=== PATIENT | female | born 1955 | race Caucasian/White ===

== ENCOUNTER 2017-05-23 09:15 | Observation (INO) | payer BC, OTHER ==
[2017-05-23] VITALS (14 sets, daily range): BP systolic 90–173; BP diastolic 49–99
[~2017-05-23] VITALS: Ht 157.5 cm; Wt 93.9 kg
--- NOTE | ~2017-05-23 | D ---
[facility] [place] [address] DISCHARGE SUMMARY Name: TERE LANDIS Room #: 217-P [facility] Ayse Golden#: [id number] Admission: 05/23/17 Attend Phys: Joshua Pichardo Discharge: 05/24/17 Date of : 59 Report #: [id number] THIS REPORT FOR: //name// CC: Joshua Mays DATE OF SERVICE: 05/24/2017 FINAL DIAGNOSES: 1. Unstable angina, status post coronary intervention. 2. Hypertension. 3. Hypercholesterolemia. HOSPITAL COURSE: Please see the original H and P for full details. The patient presented with unstable angina, evaluated by Dr. Joshua Pichardo. She was found to have an abnormal nuclear stress test. Please see the cardiac catheterization report for full details. She was found to have a severe occlusion in the LAD, undergoing placement of a drug-eluting stent. The patient has remained hemodynamically stable overnight. She will be discharged home on aspirin once a day, prasugrel 10 mg daily and atorvastatin 40 mg daily. She will continue with Lotrel 5/10 mg daily. She is given instructions for followup with Dr. Pichardo in a few weeks' time. We had a long discussion regarding the importance of compliance with taking dual antiplatelet therapy. <ELECTRONICALLY SIGNED> By: Asad Peterson MD 05/25/17 0805 [id number] [id number] Asad Peterson MD /darren
--- NOTE | ~2017-05-23 | CATHLAB ---
[facility] [address] [place] [address] INVASIVE PROCEDURE REPORT Name: TERE LANDIS Room #: 217-P [facility]#: [id number] Admission: 05/23/17 Attend Phys: Joshua Mayer Discharge: 05/24/17 Date of : 59 Date of Service: 05/26/17 1215 Report #: [id number] THIS REPORT FOR: //name// APPROVED REPORT Patient Details Patient Status: Out-Patient Room #: The patient is a 61 year-old female Event Personnel Joshua Pichardo Boat Outfitting Supervisor, Amara Palumbo Monitor, Kamran Arreaga RN, Henrry Garcia Scrub Procedures Performed Art Access - R femoral artery* 80430 Initial Mod Sed Same Phys/QHP Gr5y [id number] 30734 Mod Sed Same Phys/QHP Ea [id number] Left Heart Cath w/or w/o Coronaries [id number] [facility] Place w/wo Plasty Single LAD 501938 Hemostasis with Manual pressure Indication Dyspnea, Positive stress test, Chest pain Procedure Narrative The patient was brought electively to the Cardiac Catheterization Laboratory and was prepped and draped in a sterile manner. The Right Groin^ was infiltrated with 1% Lidocaine subcutaneous anesthesia. A PINNACLE 4FR Sheath #[id number] sheath was inserted into the RFA^. Coronary angiography was performed using coronary diagnostic catheters. The right coronary system was accessed and visualized with a JR 4 catheter. The left coronary system was accessed and visualized with a JL 4 catheter. The left ventricle was accessed and visualized with a JR 4 catheter. Left ventricular/Aortic Valve gradient assessed via catheter pullback. The patient tolerated the procedure well and there were no complications associated with the procedure. There was no hematoma. Intraoperative Conscious Sedation Sedation start time: 11:30 Case end Time: 12:06 Versed 4.0 mg Fluoro Time: 10.33 minutes Dose: DAP 7224.00 cGycm2 1096 mGy Contrast Type and Amount: Omnipaque [address] [facility] [place] [address] INVASIVE PROCEDURE REPORT Name: TERE LANDIS Room #: 217-P [facility].#: [id number] Admission: 05/23/17 Attend Phys: Joshua Mayer Discharge: 05/24/17 Date of : 59 Date of Service: 05/26/17 1215 Report #: [id number] Diagnostic Cath Left Main Normal origin and caliber bifurcates left anterior descending left circumflex coronary artery. Free of high-grade stenotic lesions LAD Moderate caliber type II vessel. Procedure in the anterior interventricular sulcus were at the first septal materials management clerk is an eccentric high-grade lesion with thrombus present. This is greater than 95% stenosis. The remainder of the LAD has ANAHI 2 flow and is with only mild irregularities as it bifurcates at the apex and terminates. The first septal materials management clerk origin is high-grade and involved in the lesion Diagonal 1 Smaller caliber vessel free of high-grade disease Circumflex Moderate to large caliber vessel of normal origin and courses in the AV groove posteriorly and gives rise for posterior lateral marginal branch. At the origin of this marginal branch is a 40-50% eccentric lesion which is not flow-limiting OM1 Moderate caliber rapidly tapering vessel with a proximal 40-50% lesion as stated above Right Coronary Moderate caliber vessel of normal origin and courses in the AV groove to the crux of the heart gives rise to smaller caliber posterior descending artery. The posterior circulation is also noted to be small with luminal irregularities present Hemodynamics The aortic pressure is 188/92 mmHg with a mean of 133 mmHg. The left ventricular pressure is 155/17 mmHg with a mean of mmHg. The left ventricular end diastolic pressure is 24 mmHg. PCI Technique Following the termination of PCI A need the 4 Chadian system was exchanged for a standard 6 Chadian sheath. A standard left guide was then advanced and cannulated the left coronary ostium under fluoroscopic visualization. A 0.014 wire was then advanced beyond the lesion and stent attempted to be deployed. This was unsuccessful and subsequently removed via magnetic technique. A 2.5 mm balloon was then placed across the lesion and predilatation occurred without complications. The patient did have 10 out of 10 discomfort without EKG changes during this time. The stent was then reintroduced and deployed across the lesion to 12 eran without complications. Flow was reestablished with ANAHI-3 grade noted. No loss of side branches distal embolization or intraluminal disruption identified. The septal vessel appeared more widely patent post dilatation PCI Technique [facility] [address] [place] [address] INVASIVE PROCEDURE REPORT Name: TERE LANDIS Room #: 217-P [facility] M.R.#: [id number] Admission: 05/23/17 Attend Phys: Joshua Mayer Discharge: 05/24/17 Date of : 59 Date of Service: 05/26/17 1215 Report #: [id number] Anticoagulation was achieved with Angiomax. Percutaneous coronary intervention was performed on the proximal left anterior descending artery segment. A LAUNCHER 6FR JL4 #[id number] Guide Catheter was used to engage the ostium. A Luge Wire (J) .014 X 182CM #[id number] Interventional Guidewire was used to cross the lesion. BALLOON DILATION A Balloon catheter Sprinter OTW 2.5 x 15 #[id number] was inserted and inflated up to 8.00atm for 12seconds. Additional Inflation: 10.00atm for 20seconds. Additional Inflation: 8.00atm for 9seconds. STENT DEPLOYMENT A drug-eluting stent RESOLUTE OTW 2.5 X 18 #[id number] was inserted and inflated up to 12.00atm for 20seconds. Final angiography reveals % stenosis with ANAHI 3 flow. Conclusion 1. Coronary disease, severe, single-vessel 2. Successful percutaneous revascularization and stenting of the proximal mid LAD with a 2.5 mm ALIN Medtronic resolute stent taken to 12 eran 3. Abnormal hemodynamics with mildly elevated left ventricular end-diastolic pressures Recommendations Cardiac Risk Reduction Program Aggressive Medical Therapy Medications Administered Aspirin (any) Prasugrel <ELECTRONICALLY SIGNED> By: Joshua Pichardo MD 05/26/175 14 14 Joshua Pichardo MD /INF
[~2017-05-23 09:15] MED LIST: LOTREL 5-10 MG1 EACH PO
[2017-05-24 00:45] VITALS: BP 133/63
[2017-05-24 03:38] LABS: HEMATOCRIT 42.4 % (37.0-47.0); HEMOGLOBIN 14.1 gm/dL (12.0-15.0); MCH 29.5 pg (26.0-34.0); MCHC 33.3 g/dL (28.0-37.0); MCV 88.8 fL (80.0-100.0); RBC 4.78 mil/uL (4.20-5.00); RDW 13.7 % (10.5-14.5); WBC 8.8 thou/uL (4.0-11.0)
[2017-05-24 03:54] LABS: CALCIUM 8.6 mg/dL (8.5-10.1); CREATININE 0.7 mg/dL (0.6-1.0)
[2017-05-24 04:45] VITALS: BP 129/67
[2017-05-24 08:14] VITALS: BP 147/79
[2017-05-24] MEDS ORDERED: EFFIENT10 MG PO (09:11)
[2017-05-24] MEDS ORDERED: ASPIRIN325 PO (09:12)
[2017-05-24] MEDS ORDERED: ATORVASTATIN CA40 MG PO (09:12)
[2017-05-24 10:00] VITALS: BP 147/79
== END 2017-05-24 10:37 | disposition home or self-care (01) ==
LOC: CATH 09:15 → 2N 13:02 → CATH 14:21 → 2N 05-24 10:37
PROVIDERS: Internal Medicine Cardiovascular Disease
DX: I25.10 Atherosclerotic heart disease of native coronary artery without angina pectoris (principal); I10 Essential (primary) hypertension; E78.5 Hyperlipidemia, unspecified; J30.2 Other seasonal allergic rhinitis

== ENCOUNTER → 2020-02-04 | Outpatient (CLI) | payer BC, OTHER ==
[~2020-02-04] MED LIST changes: +ASPIRIN325 PO; +ATORVASTATIN CA40 MG PO; +EFFIENT10 MG PO
== END ==
LOC: SJCVCIMAG 08:04
PROVIDERS: ATTEND Internal Medicine
DX: I08.1 Rheumatic disorders of both mitral and tricuspid valves (principal); I25.10 Atherosclerotic heart disease of native coronary artery without angina pectoris; R94.31 Abnormal electrocardiogram [ECG] [EKG]